=== PATIENT | female | born 1970 | race Caucasian/White ===

== ENCOUNTER 2020-03-30 15:19 | Emergency (ER) | payer OTHER ==
--- NOTE | 2020-03-30 15:34 | ED Physician Documentation ---
PD HPI UPPER EXT INJURY - Stated complaint Stated Complaint: RT WRIST INJ - Chief complaint Chief Complaint: Ext Problem - History obtained from History obtained from: Patient - History of Present Illness Location: Right, Wrist Type of injury: Fall (slipped and fell forward onto right outstretched hand. Pain at wrist. Denies other injury.) Timing - onset: Last night Timing - details: Abrupt onset, Still present Improved by: Rest Worsened by: Moving, Palpating Associated symptoms: Swelling. No: Weakness, Numbness Similar symptoms before: Has not had sx before Recently seen: Not recently seen Review of Systems Constitutional: denies: Fever Nose: denies: Rhinorrhea / runny nose, Congestion Throat: denies: Sore throat Cardiac: denies: Chest pain / pressure Respiratory: denies: Cough GI: denies: Abdominal Pain PD PAST MEDICAL HISTORY - Past Medical History Cardiovascular: None Respiratory: None Musculoskeletal: None - Present Medications Home Medications: Ambulatory Orders Medication Instructions Recorded Confirmed Hydrocodone/Acetaminophen 1 each PO Q6H PRN #20 tablet 03/30/20 [Hydrocodone-Acetamin 5-325 mg] Naproxen 500 mg PO BID #25 tablet 03/30/20 - Allergies Allergies/Adverse Reactions: Allergies Allergy/AdvReac Type Severity Reaction Status Date / Time No Known Drug Allergies Allergy Verified 03/30/20 15:23 PD ED PE NORMAL - Vitals Vital signs reviewed: Yes - General General: Alert and oriented X 3, Well developed/nourished - HEENT HEENT: Atraumatic - Neck Neck: Supple, no meningeal sign, No bony TTP - Derm Derm: Normal color, Warm and dry - Extremities Extremities: Other (right wrist with swelling and tenderness with some dorsal deformity. Good pulses, color and cap refill in fingers. ) - Neuro Neuro: Alert and oriented X 3, No motor deficit, No sensory deficit, Normal speech Results - Vitals Vitals: Vital Signs - 24 hr 03/30/20 03/30/20 15:23 17:08 Temperature 36.6 C Heart Rate 80 87 Respiratory 16 18 Rate Blood Pressure 119/75 113/86 H O2 Saturation 96 98 Oxygen O2 Source Room air - Rads (name of study) right wrist Radiology: Prelim report reviewed, EMP read contemporaneously (comminuted intraarticular fracture with about 15 degree angulation), See rad report Procedures - Splint (location) right wrist Splint applied by: Tech Type of splint: Fiberglass, Sugar tong Other: Patient tolerated well, No complications, Neurovascular intact, Sling provided PD MEDICAL DECISION MAKING - ED course Complexity details: reviewed results (seems close enough in angle and has good height for now; will likely need reduction or surgery by Ortho in follow up. ), considered differential, d/w patient Departure - Departure Disposition: 01 Home, Self Care Clinical Impression: Accidental fall Qualifiers: Encounter type: initial encounter Qualified Code(s): W19.XXXA - Unspecified fall, initial encounter Colles' fracture Qualifiers: Encounter type: initial encounter Fracture type: closed Laterality: right Qualified Code(s): S52.531A - Colles' fracture of right radius, initial encounter for closed fracture Condition: Stable Record reviewed to determine appropriate education?: Yes Instructions: ED Fx Colles Wrist Redu Requ Follow-Up: El Grayson MD [Provider Admit Priv/Credential] - Prescriptions: Hydrocodone/Acetaminophen [Hydrocodone-Acetamin 5-325 mg] 1 each PO Q6H PRN #20 tablet PRN Reason: Pain Naproxen 500 mg PO BID #25 tablet Comments: Keep the splint on. Ice elevate and rest the wrist often to reduce swelling over the next several days in particular. Anti-inflammatory such as naproxen twice daily with food for the next 7 to 10 days. Add Tylenol or hydrocodone as needed for worse pain every 6 hours. Call the orthopedic office tomorrow for follow-up appointment for later this week. If for any reason they are unable to see you, you can also call the [facility] for an alternate follow-up. Typically our orthopedic office is able to provide a timely follow-up. This fracture may need some reduction once the swelling is down. It is close enough at this time. The orthopedist can discuss whether he thinks surgery is indicated given the comminuted appearance (several broken pieces). These further interventions, if needed, are typically done after the swelling is down. Discharge Date/Time: 03/30/20 17:14
[2020-03-30] MEDS ORDERED: HYDROcod/ACETAM 5/325 MG TABLET PO STA (15:40)
--- NOTE | 2020-03-30 16:07 | XRAY Report ---
PROCEDURE: Wrist 3 View RT INDICATIONS: fall to right wrist TECHNIQUE: 3 views of the wrist were acquired. COMPARISON: None FINDINGS: Bones: There is a comminuted, intra-articular fracture of the distal radius, with mild to moderate d orsal angulation and moderate displacement of fracture fragments. There is an associated moderately displaced ulnar styloid fracture. No radiocarpal dislocation can be seen. No carpal fractures are seen. There is chronic appearing irregularity seen involving the fifth metacarpal, which is attributed to a remote fracture. Focal degenerative change is seen involving the carpometacarpal joint, with milder degenerative changes seen elsewhere. Soft tissues: Soft tissue swelling is seen. IMPRESSION: Comminuted, intra-articular fracture of the distal radius, with moderate displacement and moderate do rsal angulation. There is a moderately displaced ulnar styloid fracture also seen. Apparent fifth metacarpal fracture noted. Reviewed by: Anthony Maurer MD on 03/30/2020 3:06 PM [facility] Approved by: Anthony Maurer MD on 03/30/2020 3:06 PM EVITA Station ID: [id number]
[2020-03-30 18:39] VITALS: BP 113/86
== END 2020-03-30 17:14 | disposition home or self-care (01) ==
LOC: ED 15:19
DX: S52.531A Colles' fracture of right radius, initial encounter for closed fracture (principal); S52.611A Displaced fracture of right ulna styloid process, initial encounter for closed fracture; W01.0XXA Fall on same level from slipping, tripping and stumbling without subsequent striking against object, initial encounter
CPT/HCPCS: 29125; 73110; 99283; 99284; A9270